=== PATIENT | male | born 1950 | race Caucasian/White ===

== ENCOUNTER 2022-04-29 16:41 | Emergency (ER) | payer MEDICARE ==
[2022-04-29] MEDS ORDERED: Lidocaine 1% (PF) 30 ML VIAL ONE (17:04)
[2022-04-29] MEDS ORDERED: Boostrix 0.5 ML (Tdap) VIAL ONE (18:07)
[2022-04-29] MEDS ORDERED: Bacitracin 1 PK ONE (18:37)
== END 2022-04-29 18:52 | disposition home or self-care (01) ==
LOC: MADERS 16:41
DX: S56.123A Laceration of flexor muscle, fascia and tendon of right middle finger at forearm level, initial encounter (principal); I25.10 Atherosclerotic heart disease of native coronary artery without angina pectoris; W26.0XXA Contact with knife, initial encounter; Z23 Encounter for immunization
CPT/HCPCS: 12001; 90471; 90715; J2001